=== PATIENT | male | born 1985 | race Caucasian/White ===

== ENCOUNTER 2023-05-23 09:21 | Outpatient (OUT) | payer OTHER, SELFPAY ==
[2023-05-23 09:44] LABS: Basophils Percent Auto 1.1 % (0.2-2.0); Eosinophils Absolute Auto 0.1 10^3/uL (0.0-0.7); Eosinophils Percent Auto 2.6 % (0.9-7.0); Hematocrit 43.1 % (42.0-54.0); Hemoglobin 13.5 g/dL (14.0-18.0); Immature Granulocytes Abs Auto 0.01 10^3/uL (0.00-0.03); Immature Granulocytes Pct Auto 0.3 % (0.0-0.5); Lymphocytes Absolute Auto 1.1 10^3/uL (1.2-3.8); Lymphocytes Percent Auto 30.2 % (20.5-60.0); Mean Corpuscular HGB Conc 31.3 g/dL (29.9-35.2); Mean Corpuscular Hemoglobin 28.3 pg (25.9-34.0); Mean Corpuscular Volume 90.4 fL (80.0-94.0); Mean Platelet Volume 11.5 fL (9.5-13.5); Monocytes Absolute Auto 0.4 10^3/uL (0.3-0.8); Monocytes Percent Auto 10.8 % (1.7-12.0); Neutrophils Absolute Auto 2.1 10^3/uL (1.4-6.5); Platelet Count 216 10^3/uL (150-450); Red Blood Count 4.77 10^6/uL (4.70-6.10); Red Cell Distribution Width 12.4 % (11.0-15.0); White Blood Count 3.8 10^3/uL (4.0-11.0)
[2023-05-23 10:25] LABS: Estimated Average Glucose 105 mg/dL; Glycohemoglobin A1C 5.3 % (4.5-6.2)
[2023-05-23 13:15] LABS: Alanine Aminotransferase 33 U/L (16-63); Albumin Globulin Ratio 1.1; Albumin Level 3.7 g/dL (3.4-5.0); Alkaline Phosphatase 85 U/L (46-116); Anion Gap 13.6; Aspartate Amino Transferase 19 U/L (15-37); BUN Creatinine Ratio 14.1; Bilirubin Total 0.3 mg/dL (0.2-1.0); Calcium 8.9 mg/dL (8.5-10.1); Carbon Dioxide 28.9 mmol/L (21.0-32.0); Chloride 104 mmol/L (98-107); Chol HDL Ratio 2.2; Cholesterol 123 mg/dL (<=200); Estimated GFR (African America >60 (>=60); Estimated GFR (Non-African Ame >60 (>=60); Free T3 2.91 pg/mL (2.18-3.98); Globulin 3.5 g/dL; Glucose 85 mg/dL (74-106); HDL Cholesterol 56 mg/dL (40-60); LDL Cholesterol Calculated 62.4 mg/dL; Potassium 4.5 mmol/L (3.5-5.1); Sodium 142 mmol/L (136-145); Thyroid Stimulating Hormone 0.992 uIU/mL (0.358-3.740); Total Protein 7.2 g/dL (6.4-8.2); Triglycerides 23 mg/dL (<=150); VLDL CHOLESTEROL 4.6 mg/dL
[2023-05-24 11:09] LABS: Insulin 3.7 uIU/mL (2.6-24.9)
== END 2023-05-23 09:22 | disposition home or self-care (01) ==
LOC: LAB 09:24
PROVIDERS: PCP Nurse Practitioner Family; Visit Provider Nurse Practitioner Family
DX: Z00.00 Encounter for general adult medical examination without abnormal findings (principal)
CPT/HCPCS: 36415; 80053; 80061; 83036; 83525; 84436; 84443; 84481; 85025

== ENCOUNTER 2023-07-18 08:38 | Outpatient (OUT) | payer OTHER, SELFPAY ==
--- OUTSIDE RECORDS SUMMARY | 2023-07-18 08:42 | XMS_ITS | CCD ---
Author Name Unknown Address [address] [place] [address] Organization [facility] Care Team Providers Care Lithographer Apprentice Name Role Phone Smith Dougherty Unavailable Unavailable Farhat, Smith Duval Unavailable Unavailable RUSTAM FINE Unavailable Unavailable Unavailable Primary Care Provider UnavailLEIDY Nice Referring Unavailable LEIDY RAE Referring Unavailable AMANDEEP, DR DANYELL Calvillo Consulting Unavailable RAKESH DIAZ Primary Care Unavailable PAY, DR GRAMAJO Attending Unavailable PAY, DR GRAMAJO Admitting Unavailable PAY, DR GRAMAJO Consulting Unavailable Problems Problem Classification Problem Date Documented Da te Episodic/Chronic Administrative/social admission (4 sources) Encounter for pre-employment examination; Translations: [ENCOUNTER FOR PRE-EMPLOYMENT EXAM] Onset: 06-02-2022 Episodic Results Test Name Value Interpretation Reference Range Facil ity BUNon 06-02-2022 Urea nitrogen [Mass/Vol] 8.0 mg/dL Normal 7.0-18.0 [facility] Comment on above: Performed By: #### G LAUREN, CREA, LIVER, LIPID, BUN #### [facility] [address] [place] [address] Dr. Margie Crouch CBC AUTO DIFFon 06-02-2022 BASO # 0.0 103/ul Normal 0.0-0.1 [facility] Comment on above: Performed By: #### C BC #### [facility] [address] [address] [address] Margie Crouch Basophils/100 WBC (Bld) 0.8 % Normal 0.2-2.0 [facility] Comment on above: Performed By: #### C BC #### [facility] [address] [address] [address] Margie Crouch EO # 0.1 103/ul Normal 0.0-0.7 [facility] Comment on above: Performed By: #### C BC #### [facility] [address] [place] [address] Dr. Margie Crouch Eosinophils/100 WBC (Bld) 1.8 % Normal 0.9-7.0 [facility] Comment on above: Performed By: #### C BC #### [facility] [address] [place] [address] Dr. Margie Crouch Erythrocyte distribution width (RBC) [Ratio] 13.3 % Normal 11.0-15.0 [facility] Comment on above: Performed By: #### C BC #### [facility] [address] [place] [address] Dr. Margie Crouch Hematocrit (Bld) [Volume fraction] 44.1 % Normal 42.0-54.0 [facility] Comment on above: Performed By: #### C BC #### [facility] [address] [place] [address] Dr. Margie Crouch Hemoglobin (Bld) [Mass/Vol] 14.1 g/dL Normal 14.0-18.0 [facility] Comment on above: Performed By: #### C BC #### [facility] [address] [place] [address] Dr. Margie Crouch IG # 0.01 10e3/ul Normal 0.00-0.03 [facility] Comment on above: Performed By: #### C BC #### [facility] [address] [place] [address] Dr. Margie Crouch IG % 0.3 % Normal 0.0-0.5 [facility] Comment on above: Performed By: #### C BC #### [facility] [address] [place] [address] Dr. Margie Crouch LYMPH # 1.2 103/ul Normal 1.2-3.8 [facility] Comment on above: Performed By: #### C BC #### [facility] [address] [place] [address] Dr. Margie Crouch Lymphocytes/100 WBC (Bld) 29.8 % Normal 20.5-60.0 [facility] Comment on above: Performed By: #### C BC #### [facility] [address] [place] [address] Dr. Margie Crouch MANUAL DIFF REQ NO Normal [facility] Comment on above: Performed By: #### C BC #### [facility] [address] [place] [address] Dr. Margie Crouch MCH (RBC) [Entitic mass] 27.9 pg Normal 25.9-34.0 [facility] Comment on above: Performed By: #### C BC #### [facility] [address] [place] [address] Dr. Margie Crouch MCHC (RBC) [Mass/Vol] 32.0 g/dL Normal 29.9-35.2 [facility] Comment on above: Performed By: #### C BC #### [facility] [address] [place] [address] Dr. Margie Crouch MCV (RBC) [Entitic vol] 87.3 fL Normal 80.0-94.0 [facility] Comment on above: Performed By: #### C BC #### [facility] [address] [place] [address] Dr. Margie Crouch MONO # 0.4 103/ul Normal 0.3-0.8 [facility] Comment on above: Performed By: #### C BC #### [facility] [address] [place] [address] Dr. Margie Crouch Monocytes/100 WBC (Bld) 11.0 % Normal 1.7-12.0 [facility] Comment on above: Performed By: #### C BC #### [facility] [address] [place] [address] Dr. Margie Crouch NEUT # 2.3 103/ul Normal 1.4-6.5 [facility] Comment on above: Performed By: #### C BC #### [facility] [address] [place] [address] Dr. Margie Crouch Neutrophils/100 WBC (Bld) 56.3 % Normal 43.0-75.0 [facility] Comment on above: Performed By: #### C BC #### [facility] [address] [place] [address] Dr. Margie Crouch Platelet mean volume (Bld) [Entitic vol] 11.4 fL Normal 9.5-13.5 [facility] Comment on above: Performed By: #### C BC #### [facility] [address] [place] [address] Dr. Margie Crouch PLT 187 103/ul Normal 150-450 [facility] Comment on above: Performed By: #### C BC #### [facility] [address] [address] [address] Margie Crouch RBC 5.05 106/ul Normal 4.70-6.10 [facility] Comment on above: Performed By: #### C BC #### [facility] [address] [place] [address] Dr. Margie Crouch WBC 4.0 103/ul Normal 4.0-11.0 [facility] Comment on above: Performed By: #### C BC #### [facility] [address] [place] [address] Dr. Margie Crouch CREATININEon 06-02-2022 Creatinine [Mass/Vol] 0.83 mg/dL Normal 0.70-1.30 [facility] Comment on above: Performed By: #### G LAUREN, CREA, LIVER, LIPID, BUN #### [facility] [address] [place] [address] Dr. Margie Crouch EGFR-AF DJIBOUTIAN >60 Normal >=60 [facility] Comment on above: Performed By: #### G LAUREN, CREA, LIVER, LIPID, BUN #### [facility] [address] [place] [address] Dr. Margie Crouch EGFR-NON AF DJIBOUTIAN >60 Normal >=60 [facility] Comment on above: Performed By: #### G LAUREN, CREA, LIVER, LIPID, BUN #### [facility] [address] [place] [address] Dr. Margie Crouch GLUCOSE BLOODon 06-02-2022 Glucose [Mass/Vol] 86 mg/dL Normal 74-106 [facility] Comment on above: Performed By: #### G LAUREN, CREA, LIVER, LIPID, BUN #### [facility] [address] [address] [address] Margie Crouch LIPID PROFILEon 06-02-2022 CHOL-HDL RATIO NORM SEE BELOW Normal [facility] Comment on above: Result Comment: 3.3 - 4.4 LOW RISK 4.4 - 7.1 AVERAGE RISK 7.1 - 11.0 MODERATE RISK >11.0 HIGH RISK Performed By: #### G LAUREN, CREA, LIVER, LIPID, BUN #### [facility] [address] [address] [address] Margie Crouch Cholesterol [Mass/Vol] 181 mg/dL Normal <=200 [facility] Comment on above: Performed By: #### G LAUREN, CREA, LIVER, LIPID, BUN #### [facility] [address] [address] [address] Margie Crouch Cholesterol in HDL [Mass/Vol] 89 mg/dL Critically high 40-60 [facility] Comment on above: Performed By: #### G LAUREN, CREA, LIVER, LIPID, BUN #### [facility] [address] [address] [address] Margie Crouch Cholesterol in LDL [Mass/Vol] 89.0 mg/dL Normal [facility] Comment on above: Performed By: #### G LAUREN, CREA, LIVER, LIPID, BUN #### [facility] [address] [address] [address] Margie Crouch Cholesterol.total/Ch olesterol in HDL [Mass ratio] 2.0 {ratio} Normal [facility] Comment on above: Performed By: #### G LAUREN, CREA, LIVER, LIPID, BUN #### [facility] [address] [address] [address] Margie Crouch HDL NORMAL > or = 60 mg/dl - LO W CARDIOVASCULAR RISK <40 mg/dl - HIGH CARDIOVASCULAR RISK Normal [facility] Comment on above: Performed By: #### G LAUREN, CREA, LIVER, LIPID, BUN #### [facility] [address] [address] [address] Margie Crouch LDL CALC NORMAL SEE BELOW Normal [facility] Comment on above: Result Comment: <100 mg/dl OPTIMAL 100 - 129 mg/dl NEAR OR ABOVE OPTIMAL 130 - 159 mg/dl BORDERLINE HIGH 160 - 189 mg/dl HIGH >190 mg/dl VERY HIGH Performed By: #### G LAUREN, CREA, LIVER, LIPID, BUN #### [facility] [address] [address] [address] Margie Crouch Triglyceride [Mass/Vol] 15 mg/dL Normal <=150 [facility] Comment on above: Performed By: #### G LAUREN, CREA, LIVER, LIPID, BUN #### [facility] [address] [address] [address] Margie Crouch VLDL CALC 3.0 mg/dL Normal [facility] Comment on above: Performed By: #### G LAUREN, CREA, LIVER, LIPID, BUN #### [facility] [address] [place] [address] Dr. Margie Crouch LIVER PROFILEon 06-02-2022 Albumin [Mass/Vol] 4.0 g/dL Normal 3.4-5.0 [facility] Comment on above: Performed By: #### G LAUREN, CREA, LIVER, LIPID, BUN #### [facility] [address] [place] [address] Dr. Margie Crouch Albumin/Globulin [Mass ratio] 1.2 {ratio} Normal [facility] Comment on above: Performed By: #### G LAUREN, CREA, LIVER, LIPID, BUN #### [facility] [address] [place] [address] Dr. Margie Crouch ALP [Catalytic activity/Vol] 66 U/L Normal 46-116 [facility] Comment on above: Performed By: #### G LAUREN, CREA, LIVER, LIPID, BUN #### [facility] [address] [place] [address] Dr. Margie Crouch ALT [Catalytic activity/Vol] 30 U/L Normal 16-63 [facility] Comment on above: Performed By: #### G LAUREN, CREA, LIVER, LIPID, BUN #### [facility] [address] [place] [address] Dr. Margie Crouch AST [Catalytic activity/Vol] 28 U/L Normal 15-37 [facility] Comment on above: Performed By: #### G LAUREN, CREA, LIVER, LIPID, BUN #### [facility] [address] [address] [address] Margie Crouch BILI, CONJUGATED 0.1 mg/dL Normal 0.0-0.2 [facility] Comment on above: Performed By: #### G LAUREN, CREA, LIVER, LIPID, BUN #### [facility] [address] [place] [address] Dr. Margie Crouch Bilirubin [Mass/Vol] 0.3 mg/dL Normal 0.2-1.0 [facility] Comment on above: Performed By: #### G LAUREN, CREA, LIVER, LIPID, BUN #### [facility] [address] [place] [address] Dr. Margie Crouch Globulin (S) [Mass/Vol] 3.4 g/dL Normal [facility] Comment on above: Performed By: #### G LAUREN, CREA, LIVER, LIPID, BUN #### [facility] [address] [place] [address] Dr. Margie Crouch Protein [Mass/Vol] 7.4 g/dL Normal 6.4-8.2 [facility] Comment on above: Performed By: #### G LAUREN, CREA, LIVER, LIPID, BUN #### [facility] [address] [place] [address] Dr. Margie Crouch UA (CLEAN/CATCH) MICROSCOPIC IF INDICATEon 06-02-2022 Bilirubin Ql (U) Negative Normal NEGATIVE [facility] Comment on above: Performed By: #### U ARMICR #### [facility] [address] [place] [address] Dr. Margie Crouch Clarity (U) CLEAR Normal CLEAR [facility] Comment on above: Performed By: #### U ARMICR #### [facility] [address] [place] [address] Dr. Margie Crouch Color (U) LT. YELLOW Normal YELLOW [facility] Comment on above: Performed By: #### U ARMICR #### [facility] [address] [address] [address] Margie Crouch Glucose Ql (U) Negative Normal NEGATIVE [facility] Comment on above: Performed By: #### U ARMICR #### [facility] [address] [address] [address] Margie Crouch Hemoglobin Ql (U) Negative Normal NEGATIVE [facility] Comment on above: Performed By: #### U ARMICR #### [facility] [address] [address] [address] Margie Crouch Ketones Ql (U) Negative Normal NEGATIVE [facility] Comment on above: Performed By: #### U ARMICR #### [facility] [address] [address] [address] Margie Crouch LEUKOCYTES Negative Normal NEGATIVE [facility] Comment on above: Performed By: #### U ARMICR #### [facility] [address] [address] [address] Margie Crouch Nitrite Ql (U) Negative Normal NEGATIVE [facility] Comment on above: Performed By: #### U ARMICR #### [facility] [address] [address] [address] Margie Crouch pH (U) 7.0 [pH] Normal 5-9 [facility] Comment on above: Performed By: #### U ARMICR #### [facility] [address] [address] [address] Margie Crouch SPEC GRAVITY 1.015 Normal 1.005-<=1.025 [facility] Comment on above: Performed By: #### U ARMICR #### [facility] [address] [address] [address] Margie Crouch UA PROTEIN Negative Normal NEGATIVE/ TRACE [facility] Comment on above: Performed By: #### U ARMICR #### [facility] [address] [address] [address] Margie Crouch UR MICRO IND NOT INDICATED Normal [facility] Comment on above: Performed By: #### U ARMICR #### [facility] [address] [address] [address] Margie Crouch Urobilinogen Qn (U) 0.2 {Flakita'U}/dL Normal 0.2 - 1. 0 [facility] Comment on above: Performed By: #### U XIMENA #### [facility] [address] [address] [address] Margie Crouch Blood Occult Stool Screen #1 on 01-29-2020 Date, Stool #1 [id number] [facility] [place] [place] Date, Stool #2 NOT REPORTED [facility] [place] Date, Stool #3 NOT REPORTED [facility] [place] Hemoglobin.gastroint estinal spec 1 Ql (Stl) Negative NEGATIVE [facility] [place] Hemoglobin.gastroint estinal spec 2 Ql (Stl) NOT REPORTED NEGATIVE [facility] [place] Hemoglobin.gastroint estinal spec 3 Ql (Stl) NOT REPORTED NEGATIVE [facility] [place] Time, Stool #1 UNKNOWN [facility] [place] Time, Stool #2 NOT REPORTED [facility] [place] Time, Stool #3 NOT REPORTED [facility] [place] CBCon 01-29-2020 Erythrocyte distribution width (RBC) [Ratio] 18.7 % High 11.8-14.4 [facility] Comment on above: Performed By: #### C JAVIER BRAXTON CP, OBN #### [facility] [address] [place] [address] [place] [address] Nursing Home Aide: Rustam Domingo MD Hematocrit (Bld) [Volume fraction] 45.8 % Normal 40.7-50.3 [facility] Comment on above: Performed By: #### C IRAIS, JAVIER, SALINAS, OBN #### [facility] [address] [place] [address] Nursing Home Aide: Rustam Domingo MD Hemoglobin (Bld) [Mass/Vol] 13.3 g/dL Normal 13.0-17.0 [facility] Comment on above: Performed By: #### C IRAIS, LIPR, CP, OBN #### [facility] [address] [place] [id number] Nursing Home Aide: Rustam Domingo MD MCH (RBC) [Entitic mass] 24.4 pg Low 25.2-33.5 [facility] Comment on above: Performed By: #### C BC, LIPR, CP, OBN #### [facility] [address] [place], [facility] Nursing Home Aide: Rustam Domingo MD MCHC (RBC) [Mass/Vol] 29.0 g/dL Normal 28.4-34.8 [facility] Comment on above: Performed By: #### C BC, LIPR, CP, OBN #### [address] [place] [address] Nursing Home Aide: Rustam Domingo MD MCV (RBC) [Entitic vol] 84.2 fL Normal 82.6-102.9 [facility] Comment on above: Performed By: #### C BC, LIPR, CP, OBN #### [address] [place], [facility] Nursing Home Aide: Rustam Domingo MD NRBC Automated 0.0 per 100 WBC Normal 0.0 [facility] Comment on above: Performed By: #### C BC, LIPR, CP, OBN #### [address] [place], [facility] Nursing Home Aide: Rustam Domingo MD Platelet mean volume (Bld) [Entitic vol] 12.3 fL Normal 8.1-13.5 [facility] Comment on above: Performed By: #### C BC, LIPR, CP, OBN #### [address] [place], [facility] Nursing Home Aide: Rustam Domingo MD Platelets (Bld) [#/Vol] 247 10*3/uL Normal 138-453 [facility] Comment on above: Performed By: #### C BC, LIPR, CP, OBN #### [address] [place] [address] Nursing Home Aide: Rustam Domingo MD RBC (Bld) [#/Vol] 5.44 10*6/uL Normal 4.21-5.77 [facility] Comment on above: Performed By: #### C BC, LIPR, CP, OBN #### [facility] [address] [place] [address] Nursing Home Aide: Rustam Domingo MD WBC (Bld) [#/Vol] 3.9 10*3/uL Normal 3.5-11.3 [facility] Comment on above: Performed By: #### C BC, LIPR, CP, OBN #### [facility] [address] [place] [address] Nursing Home Aide: Rustam Domingo MD Erythrocyte distribution width (RBC) [Ratio] 18.7 % High 11.8 - 14.4 % [place], [place] Hematocrit (Bld) [Volume fraction] 45.8 % 40.7 - 50.3 % [place], [place] Hemoglobin (Bld) [Mass/Vol] 13.3 g/dL 13 - 17 g/dL [place] Interpretation and review of laboratory results Abnormal [place] MCH (RBC) [Entitic mass] 24.4 pg Low 25.2 - 33.5 pg [place] MCHC (RBC) [Mass/Vol] 29.0 g/dL 28.4 - 34.8 g/dL [place] MCV (RBC) [Entitic vol] 84.2 fL 82.6 - 102.9 fL [place] Platelet mean volume (Bld) [Entitic vol] 12.3 fL 8.1 - 13.5 fL [place], [place] Platelets (Bld) [#/Vol] 247 10*3/uL [place] RBC (Bld) [#/Vol] 5.44 10*6/uL 4.21 - 5.7 7 m/uL [place] WBC (Bld) [#/Vol] 3.9 10*3/uL [place] WBC (Bld) [#/Vol] 0.0 10*3/uL 0.0 per 100 WBC [place], [place] Comp Metabolic Profon 2019 Bilirubin Ql (U) <0.10 Low 0.3-1.2 [facility] Comment on above: Performed By: #### C BC, LIPR, CP, OBN #### [facility] [address] [place] [address] Nursing Home Aide: Rustam Domingo MD (cont.) [facility] Comment on above: Result Comment: Aver age GFR for 30-39 years old: 107 mL/min/1.73sq m Chronic Kidney Disease: <60 mL/min/1.73sq m Kidney failure: <15 mL/min/1.73sq m eGFR calculated using average adult body mass. Additional eGFR calculator available at: http://www.[employer]/multiple_crcl_2011.htm Performed By: #### C IRAIS, LIPZainab CP, OBN #### [facility] [address] [place] [address] Nursing Home Aide: Rustam Domingo MD Albumin [Mass/Vol] 4.5 g/dL Normal 3.5-5.2 [facility] Comment on above: Performed By: #### C IRAIS LIPSALINAS Lamb, OBN #### [facility] [address] [place] [address] Nursing Home Aide: Rustam Domingo MD Albumin/Globulin [Mass ratio] 1.6 {ratio} Normal 1.0-2.5 [facility] Comment on above: Performed By: #### C IRAIS LIPZainab, CP, OBN #### [facility] [address] [place] [address] Nursing Home Aide: Rustam Domingo MD Alkaline Phos 59 U/L Normal 40-129 [facility] Comment on above: Performed By: #### C BC, LIPR, CP, OBN #### [facility] [address] [place] [address] Nursing Home Aide: Rustam Domingo MD ALT [Catalytic activity/Vol] 16 U/L Normal 5-41 [facility] Comment on above: Performed By: #### C BC, LIPR, CP, OBN #### [facility] [address] [place], [place] [id number] Nursing Home Aide: Rustam Domingo MD Anion gap [Moles/Vol] 10 mmol/L Normal 9-17 [facility] Comment on above: Performed By: #### C BC, LIPR, CP, OBN #### [facility] [address] [place] [address] Nursing Home Aide: Rustam Domingo MD AST [Catalytic activity/Vol] 22 U/L Normal <40 [facility] Comment on above: Performed By: #### C BC, LIPR, CP, OBN #### [facility] [address] [place], [place] [phone] Nursing Home Aide: Rustam Domingo MD BUN/CRE Ratio 15 Normal 9-20 [facility] Comment on above: Performed By: #### C BC, LIPR, CP, OBN #### [facility] [address] [place], [place] [phone] Nursing Home Aide: Rustam Domingo MD Calcium [Mass/Vol] 9.7 mg/dL Normal 8.6-10.4 [facility] Comment on above: Performed By: #### C BC, LIPR, CP, OBN #### [facility] [address] [place], [place] [id number] Nursing Home Aide: Rustam Domingo MD Chloride [Moles/Vol] 101 mmol/L Normal 98-[address] [facility] Comment on above: Performed By: #### C BC, LIPR, CP, OBN #### [facility] [address] [place] [address] Nursing Home Aide: Rustam Domingo MD CO2 [Moles/Vol] 27 mmol/L Normal 20-31 [facility] Comment on above: Performed By: #### C BC, LIPR, CP, OBN #### [facility] [address] [place], [place] [phone] Nursing Home Aide: Rustam Domingo MD Creatinine [Mass/Vol] 0.81 mg/dL Normal 0.70-1.20 [facility] Comment on above: Performed By: #### C BC, LIPR, CP, OBN #### [facility] [address] [place], [place] [phone] Nursing Home Aide: Rustam Domingo MD GFR, Amer >60 Normal >60 [facility] Comment on above: Performed By: #### C BC, LIPR, CP, OBN #### [facility] [address] [place], [place] [phone] Nursing Home Aide: Rustam Domingo MD GFR,non Amer >60 Normal >[address] [facility] Comment on above: Performed By: #### C BC, LIPR, CP, OBN #### [facility] [address] [place], [place] [phone] Nursing Home Aide: Rustam Domingo MD Glucose [Mass/Vol] 89 mg/dL Normal 70-99 [facility] Comment on above: Performed By: #### C BC, LIPR, CP, OBN #### [facility] [address] [place], [place] [phone] Nursing Home Aide: Rustam Domingo MD Potassium [Moles/Vol] 4.9 mmol/L Normal 3.7-5.3 [facility] Comment on above: Performed By: #### C BC, LIPR, CP, OBN #### [facility] [address] [place], [place] [phone] Nursing Home Aide: Rustam Domingo MD Protein [Mass/Vol] 7.3 g/dL Normal 6.4-8.3 [facility] Comment on above: Performed By: #### C IRAIS, LIPZainab, CP, OBN #### [facility] [address] [place] [address] Nursing Home Aide: Rustam Domingo MD Sodium [Moles/Vol] 138 mmol/L Normal 135-144 [facility] Comment on above: Performed By: #### C BC, LIPR, CP, OBN #### [facility] [address] [place] [address] Nursing Home Aide: Rustam Domingo MD Staging: Normal [facility] Comment on above: Result Comment: Stag e 1: Some kidney damage normal GFR Stage 2: Mild kidney damage GFR 60-89 Stage 3: Moderate kidney damage GFR 30-59 Stage 4: Severe kidney damage GFR 15-29 Stage 5: Severe kidney damage GFR <15 ESRD - chronic treatment by dialysis or transplant Performed By: #### C IRAIS, LIPR, CP, OBN #### [facility] [address] [place] [address] Nursing Home Aide: Rustam Domingo MD Urea nitrogen [Mass/Vol] 12 mg/dL Normal 6-20 [facility] Comment on above: Performed By: #### C IRAIS, LIPZainab, CP, OBN #### [address] [place] [address] Nursing Home Aide: Rustam Domingo MD [facility]abolic [facility] 01-29-2020 Albumin [Mass/Vol] 4.5 g/dL 3.5 - 5.2 g/dL [place], [place] Albumin/Globulin [Mass ratio] 1.6 {ratio} [place], [place] ALP [Catalytic activity/Vol] 59 U/L 40 - 129 U/L [place] ALT [Catalytic activity/Vol] 16 U/L 5 - 41 U/L [place] Anion gap [Moles/Vol] 10 mmol/L 9 - 17 mmol/L [place] AST [Catalytic activity/Vol] 22 U/L <40 [place] Bilirubin Ql (U) <0.10 Low 0.3 - 1.2 mg/dL [place], [place] Bun/Cre Ratio 15 [place] Calcium [Mass/Vol] 9.7 mg/dL 8.6 - 10. 4 mg/dL [place] Chloride [Moles/Vol] 101 mmol/L 98 - 107 mmol/L [place] CO2 [Moles/Vol] 27 mmol/L 20 - 31 mmol/L [place] Creatinine [Mass/Vol] 0.81 mg/dL 0.7 - 1.2 mg/dL [place] GFR >60 >60 mL/min [place] GFR Non- >60 >60 mL/min [place] Glucose [Mass/Vol] 89 mg/dL 70 - 99 mg/dL [place] Interpretation and review of laboratory results Abnormal [place] Potassium [Moles/Vol] 4.9 mmol/L 3.7 - 5.3 mmol/L [place] Protein [Mass/Vol] 7.3 g/dL 6.4 - 8.3 g/dL [place] Sodium [Moles/Vol] 138 mmol/L 135 - 144 mmol/L [place] Urea nitrogen [Mass/Vol] 12 mg/dL 6 - 20 mg/dL [place] EKG 12 [place] 01-29-2020 Atrial Rate 55 BPM [place] P [place] 39 degrees [place] P-R Interval 158 ms [place] Q-T Interval 382 ms [place] QRS Duration 92 ms [place] QTc Calculation (Bazett) 365 ms [place] R [place] 31 degrees [place] T [place] 21 degrees [place] Ventricular Rate 55 BPM [place] Sinus bradycardia Otherwise normal ECG No previous ECGs available Confirmed by SRINIVAS MARIA ([id number]) on 01/29/2020 10:59:52 PM [place], M[facility] Incoming Ekg Results From [place] - 01/29/2020 10:59 PM EDT Sinus bradycardia Otherwise normal ECG No previous ECGs available Confirmed by SRINIVAS MARIA ([id number]) on 01/29/2020 10:59:52 PM [place] Lipid Panelon 01-29-2020 Cholesterol [Mass/Vol] 160 mg/dL <200 [place] Comment on above: Cholesterol Guidelines: <200 Desirable 200-240 Borderline >240 Undesirable Cholesterol in HDL [Mass/Vol] 55 mg/dL >40 [place] Comment on above: HDL Guidelines: <40 Undesirable 40-59 Borderline >59 Desirable Cholesterol in LDL [Mass/Vol] 95 mg/dL 0 - 130 mg/dL [place] Comment on above: LDL Guidelines: <100 Desirable 100-129 Near to/above Desirable 130-159 Borderline >159 Undesirable Direct (measured) LDL and calculated LDL are not interchangeable tests. Cholesterol in VLDL [Mass/Vol] NOT REPORTED 1 - 30 mg/dL [place] Cholesterol.total/Ch olesterol in HDL [Mass ratio] 2.9 {ratio} <5 [place] Triglyceride [Mass/Vol] 50 mg/dL <150 [place] Comment on above: Triglyceride Guidelines: <150 Desirable 150-199 Borderline 200-499 High >499 Very high Based on AHA Guidelines for fasting triglyceride, March 2012. Lipid Profileon 01-29-2020 Cholesterol [Mass/Vol] 160 mg/dL Normal <200 [facility] Comment on above: Result Comment: Cholesterol Guidelines: <200 Desirable 200-240 Borderline >240 Undesirable Performed By: #### C BC, LIPR, CP, OBN #### [facility] [address] [place] [address] Nursing Home Aide: Rustam Domingo MD Cholesterol in HDL [Mass/Vol] 55 mg/dL Normal >40 [facility] Comment on above: Result Comment: HDL Guidelines: <40 Undesirable 40-59 Borderline >59 Desirable Performed By: #### C BC, LIPR, CP, OBN #### [facility] [address] [place] [address] Nursing Home Aide: Rustam Domingo MD Cholesterol in LDL [Mass/Vol] 95 mg/dL Normal 0-130 [facility] Comment on above: Result Comment: LDL Guidelines: <100 Desirable 100-129 Near to/above Desirable 130-159 Borderline >159 Undesirable Direct (measured) LDL and calculated LDL are not interchangeable tests. Performed By: #### C BC, LIPR, CP, OBN #### [facility] [address] [place] [address] Nursing Home Aide: Rustam Domingo MD Cholesterol.total/Ch olesterol in HDL [Mass ratio] 2.9 {ratio} Normal <5 [facility] Comment on above: Performed By: #### C BC, LIPR, CP, OBN #### [facility] [address] [place] [address] Nursing Home Aide: Rustam Domingo MD Triglyceride [Mass/Vol] 50 mg/dL Normal <150 [facility] Comment on above: Result Comment: Triglyceride Guidelines: <150 Desirable 150-199 Borderline 200-499 High >499 Very high Based on AHA Guidelines for fasting triglyceride, March 2012. Performed By: #### C BC, LIPR, CP, OBN #### [facility] [address] [place] [address] Nursing Home Aide: Rustam Domingo MD Cholesterol in VLDL [Mass/Vol] NOT REPORTED Normal 07-25 [facility] Comment on above: Performed By: #### C BC, LIPR, CP, OBN #### [facility] [address] [place] [address] Nursing Home Aide: Rustam Domingo MD Metabolic Panelon 01-29-2020 GFR/1.73 sq M predicted among non-blacks MDRD (S/P/Bld) [Vol rate/Area] [facility] [place] Comment on above: Average GFR for 30-3 9 years old: 107 mL/min/1.73sq m Chronic Kidney Disease: <60 mL/min/1.73sq m Kidney failure: <15 mL/min/1.73sq m eGFR calculated using average adult body mass. Additional eGFR calculator available at: http://www.[employer].com/multiple_crcl_2012.htm Stage 1: Some kidney damage normal GFR Stage 2: Mild kidney damage GFR 60-89 Stage 3: Moderate kidney damage GFR 30-59 Stage 4: Severe kidney damage GFR 15-29 Stage 5: Severe kidney damage GFR <15 ESRD - chronic treatment by dialysis or transplant Occult Blood, Fecalon 2019 Occult Blood 1 Negative Normal NEG [facility] Comment on above: Performed By: #### C BC, LIPR, CP, OBN #### [facility] [address] [place], [place] [id number] Nursing Home Aide: Rustam Domingo MD Specimen 1 Date [facility] Comment on above: Performed By: #### C BC, LIPR, CP, OBN #### [facility] [address] [place], [place] [id number] Nursing Home Aide: Rustam Domingo MD Specimen 1 Time UNKNOWN [facility] Comment on above: Performed By: #### C BC, LIPR, CP, OBN #### [address] [place], [place] [id number] Nursing Home Aide: Rustam Domingo MD Specimen 2 Date NOT REPORTED Normal [facility] Comment on above: Performed By: #### C BC, LIPR, CP, OBN #### [facility] [address] [place], [place] [phone] Nursing Home Aide: Rustam Domingo MD Specimen 2 Time NOT REPORTED Normal [facility] Comment on above: Performed By: #### C BC, LIPR, CP, OBN #### [facility] [address] [place], [place] [phone] Nursing Home Aide: Rustam Domingo MD Specimen 3 Date NOT REPORTED Normal [facility] Comment on above: Performed By: #### C BC, LIPR, CP, OBN #### [facility] [address] [place], [place] [id number] Nursing Home Aide: Rustam Domingo MD Specimen 3 Time NOT REPORTED Normal [facility] Comment on above: Performed By: #### C BC, LIPR, CP, OBN #### [facility] [address] [place], [place] [id number] Nursing Home Aide: Rustam Domingo MD Occult Blood 2 NOT REPORTED Normal NEG [facility] Comment on above: Performed By: #### C BC, LIPR, CP, OBN #### [facility] [address] [place], [place] [phone] Nursing Home Aide: Rustam Domingo MD Occult Blood 3 NOT REPORTED Normal NEG [facility] Comment on above: Performed By: #### C BC, LIPR, CP, OBN #### [facility] [address] [place], [place] [phone] Nursing Home Aide: Rustam Domingo MD Encounters Encounter Date Encounter Type Care Provider Facility Start: 06-02-2022 End: 06-03-[address] DANYELL BERNSTEIN Facility: Start: 01-29-2020 End: 01-30-2020 Patient encounter procedure [facility] Start: 01-29-2020 End: 01-29-2020 Subsequent hospital visit by physician [facility] Start: 01-29-2020 End: 01-29-2020 Patient encounter procedure [facility] Start: 01-29-2020 End: 01-29-2020 Subsequent hospital visit by physician [facility] Start: 01-15-2018 End: 01-16-2018 Patient encounter [facility] Facility[place] Procedures Date Procedure Procedure Detail Performing Clinician Start: 06-02-[address] DANYELL BERNSTEIN Comment on above: Performed By: #### P SAD #### [facility] [address] [place] [address] Dr. Margie Crouch Start: 01-29-2020 Ecg routine ecg w/le ast 12 lds w/i&r [facility] Start: 01-29-2020 EKG REPORT [facility] Start: 01-29-2020 Blood count complete automated LEIDY RAE Start: 01-29-2020 Comprehensive metabo lic panel LEIDY RAE Start: 01-29-2020 Lipid panel [facility] ESCOBAR Start: 01-29-2020 Virus centrifuge enh ncd id imfluor stain ea LEIDY RAE Start: 01-29-2020 Ecg routine ecg w/le ast 12 lds w/i&r Leidy Rae Work Phone: Start: 01-29-2020 EKG REPORT [facility] Start: 01-29-2020 Blood count complete automated Leidy Kyra Work Phone: Start: 01-29-2020 BLOOD OCCULT STOOL S CREEN #1 Leidy Rae Work Phone: Start: 01-29-2020 Comprehensive metabo lic panel Leidycorey Rae Work Phone: Start: 01-29-2020 Lipid panel Leidy Bu nguyễn Work Phone: Plan of Treatment Date Care Activity Detail Author Start: 02-25-2020 Influenza vaccination Flu vaccine (# 1) [place] Start: 2004 DTaP/Tdap/Td vaccine (1 - Tdap) DTaP/Tdap/Td vaccine (1 - Tdap) [place] Start: 2000 HIV screening HIV screen [place], [place] Start: 1986 Varicella vaccine (1 of 2 - 2-dose childhood series) Varicella vaccine (1 of 2 - 2-dose childhood series) [place] Payers Date Payer Category Payer Unknown [id number] 2017 Unknown [id number] 1985 Unknown [id number] 1985 Unknown [id number] 1959 Self-pay Unknown [id number] Social History Date Type Detail Facility Tobacco [facility] status [facility] 06-02-2022 Note Date & Type Note Facility 06-02-2022 Note EXAMINATION: XR CHES T 2 V HISTORY: History and physical examination, pre-employment COMPARISON: No relevant comparison available. TECHNIQUE: PA and lateral FINDINGS: LUNGS: No significant pulmonary parenchymal abnormalities. VASCULATURE: No increased pulmonary vasculature. PLEURA: No pneumothorax, effusion, or pleural thickening. CARDIAC: No cardiomegaly or cardiac silhouette abnormality. MEDIASTINUM: No visible mass or adenopathy. BONES: No fracture or visible bone lesion. OTHER: Negative. IMPRESSION: Normal examination. 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 Expl anation Advance Directives and Living Will Power of Medical Sales Associate Additional Source Comments (unrecognized sect ion and content) No Status Records FoundNo Status Records FoundNo Status Records Found INFORMATION SOURCE (unrecogn ized section and content) DATE CREATED AUTHOR 01/17/2018 [facility] DATE CREATED AUTHOR AUTHOR'S ORGANIZ ATION 01/30/2020 [facility] DATE CREATED AUTHOR AUTHOR'S ORGANIZ ATION 06/07/2022 [facility] FOR RECORDS PERTAINING TO PATIENTS WHO ARE OR HAVE BEEN ENROLLED IN A CHEMICAL DEPENDENCY/SUBSTANCEABUSE PROGRAM, SOME INFORMATION MAY BE OMITTED. This clinical summary was aggregated from multiple sources. Caution should be exercised in using it in the provision of clinical care. This summary normalizes information from multiple sources, and as a consequence, information in this document may materially change the coding, format and clinical context of patient data. In addition, data may be omitted in some cases. CLINICAL DECISIONS SHOULD BE BASED ON THE PRIMARY CLINICAL RECORDS. [facility]. provides no warranty or guarantee of the accuracy or completeness of information in this document.
[2023-07-18 08:59] LABS: Basophils Absolute Auto 0.1 10^3/uL (0.0-0.1); Basophils Percent Auto 1.2 % (0.2-2.0); Eosinophils Absolute Auto 0.1 10^3/uL (0.0-0.7); Eosinophils Percent Auto 2.1 % (0.9-7.0); Hematocrit 43.2 % (42.0-54.0); Hemoglobin 13.4 g/dL (14.0-18.0); Immature Granulocytes Abs Auto 0.01 10^3/uL (0.00-0.03); Immature Granulocytes Pct Auto 0.2 % (0.0-0.5); Lymphocytes Absolute Auto 1.2 10^3/uL (1.2-3.8); Lymphocytes Percent Auto 28.3 % (20.5-60.0); Mean Corpuscular Volume 90.4 fL (80.0-94.0); Mean Platelet Volume 11.4 fL (9.5-13.5); Monocytes Absolute Auto 0.6 10^3/uL (0.3-0.8); Neutrophils Absolute Auto 2.2 10^3/uL (1.4-6.5); Neutrophils Percent Auto 53.2 % (43.0-75.0); Platelet Count 233 10^3/uL (150-450); Red Blood Count 4.78 10^6/uL (4.70-6.10); Red Cell Distribution Width 13.1 % (11.0-15.0); White Blood Count 4.2 10^3/uL (4.0-11.0)
== END 2023-07-18 08:39 | disposition home or self-care (01) ==
LOC: LAB 08:39
PROVIDERS: PCP Nurse Practitioner Family; Visit Provider Nurse Practitioner Family
DX: D64.9 Anemia, unspecified (principal)
CPT/HCPCS: 36415; 85025